=== PATIENT | female | born 1980 | race Caucasian/White ===

== ENCOUNTER 2020-12-16 21:01 | Emergency (ER) | payer OTHER ==
[~2020-12-16] VITALS: Ht 165.1 cm; Wt 63.0 kg
--- NOTE | 2020-12-16 22:21 | PHYS DOC ---
Past History Past Medical History: No Pertinent History Additional Past Surgical Histo: HIP SURGERY Alcohol Use: None General Adult EDM: Chief Complaint: POST-OP PROBLEM HPI: HPI: ".. I had surgery on this Lt hip on . at [facility].. Dr Garland.. I had a labium repair... But have noticed lately I have discoloration in my left lower leg after standing for very long. I was concerned he may have a blood clot..." Patient is a 40 year old female who presents with above hx and post op edema to Lt leg and discoloration upon standing. Patient's suture sites appear to be stable, no inflammation, and no infection. Does have what appears to be vascular congestion or discoloration of lower leg upon standing. No history of previous DVTs. No history of coagulopathy. No family history of coagulopathy. Patient left hip labral repairs on December 05. Has been doing well since surgery and ambulating with crutches. Patient has been following her surgeon's instructions. Patient became concerned when she noticed lower leg edema and discoloration. Patient's discoloration of the lower leg disappears upon regaining supine or recumbent positioning. No cording appreciated in posterior leg. On the left. Patient states she has been normally healthy in the past. No recent travel. No specific ill contacts. No history immunosuppression. Review of Systems: Review of Systems: Constitutional: Denies fever or chills Eyes: Denies change in visual acuity HENT: Denies nasal congestion or sore throat Respiratory: Denies cough or shortness of breath Cardiovascular: Complains of left lower leg edema GI: Denies abdominal pain, nausea, vomiting, bloody stools or diarrhea : Denies dysuria Musculoskeletal: Complains of left lower leg edema and discomfort Integument: Denies rash Neurologic: Denies headache, focal weakness or sensory changes Endocrine: Denies polyuria or polydipsia Lymphatic: Denies swollen glands Psychiatric: Denies depression or anxiety Family History: Family History: Noncontributory to presentation Current Medications: Current Meds: See nursing for home meds Allergies: Allergies: Allergies Coded Allergies Type Severity Reaction Last Updated Verified No Known Drug Allergies 12/16/20 No Physical Exam: PE: Constitutional: Well developed, well nourished, no acute distress, non-toxic appearance. [] HENT: Normocephalic, atraumatic, bilateral external ears normal, oropharynx moist, no oral exudates, nose normal. [] Eyes: PERRLA, EOMI, conjunctiva normal, no discharge. [] Neck: Normal range of motion, no tenderness, supple, no stridor. [] Cardiovascular:Heart rate regular rhythm, no murmur []. Monitor shows normal sinus rhythm. Lungs & Thorax: Bilateral breath sounds equal apex on auscultation [] Abdomen: Bowel sounds normal, soft, no tenderness, no masses, no pulsatile masses. [] Skin: Warm, dry, no erythema, no rash. [] Back: No tenderness, no CVA tenderness. [] Extremities: Left lower leg tenderness, no cyanosis, no clubbing, ROM intact, mild left lower leg edema. [] No cording appreciated. Surgery suture sites are stable and noninflamed. Dorsal pedis and posterior pedis are equal in both legs. Neurologic: Alert and oriented X 3, limited motor function because of the tenderness in the left lower leg at surgery site,, mild sensory loss in left lower leg,-was told this would be expected for surgery., no focal deficits noted. [] Psychologic: Affect anxious, judgement normal, mood normal. [] Current Patient Data: Vital Signs: Vital Signs Date Time Temp Pulse Resp B/P (MAP) Pulse Ox O2 Delivery O2 Flow Rate FiO2 12/16/20 21:57 98.2 69 16 119/82 (94) 98 Room Air EKG: EKG: [] Radiology/Procedures: Radiology/Procedures: [address] [id number] IMAGING REPORT Signed PATIENT: XANDER MOSLEY NACCOUNT: [id number] : 1980 LOCATION: ER AGE: 40 SEX: F EXAM STATUS: REG ER ORD. PHYSICIAN: ALICE HUTCHINS MD REASON: discolored and edema Lt. leg post surgery on 12/05 Lt hip PROCEDURE: DUPLEX LOWER EXT ARTERIAL LEFT Left Lower Extremity Venous Doppler Ultrasound History: Reason: discolored and edema Lt. leg post surgery on 12/05 Lt hip / Spl. Instructions: / History: Comparison: None Procedure: Color flow, duplex, spectral analysis and 2D images are obtained with and without compression in the area of the common femoral vein, superficial femoral vein - femoral vein junction, main femoral vein (superficial femoral vein) and popliteal vein. Veins of the proximal calf are also imaged. Findings: There is normal duplex flow, color flow and compressibility of all visualized vein segments. No evidence of deep venous thrombus is present. Impression: No evidence of DVT. End impression Left lower extremity arterial duplex Doppler examination with spectral analysis Sonographic examination left lower extremities was performed and multiple static images were obtained. In addition color Doppler was applied as well as arterial waveform spectral analysis. There is triphasic waveform morphology throughout. There is no abnormally high velocities. There is no plaque seen. IMPRESSION: Negative examination. Electronically signed by: Juan Gordillo III, MD (12/17/2020 12:33 AM) [facility] DICTATED AND SIGNED BY: JUAN GORDILLO III, MD DATE: 12/17/2031 CC: ALICE HUTCHINS MD; BYRON WEI ~MTH0 0 [][place] [address] IMAGING REPORT Signed PATIENT: XANDER MOSLEY NACCOUNT: [id number] : 1980 LOCATION: ER AGE: 40 SEX: F EXAM STATUS: REG ER ORD. PHYSICIAN: ALICE HUTCHINS MD REASON: discolored and edema Lt. leg post surgery on 12/05 hip PROCEDURE: VENOUS LOWER EXTREMITY LEFT Left Lower Extremity Venous Doppler Ultrasound History: Reason: discolored and edema Lt. leg post surgery on 12/05 Lt hip / Spl. Instructions: / History: Comparison: None Procedure: Color flow, duplex, spectral analysis and 2D images are obtained with and without compression in the area of the common femoral vein, superficial femoral vein - femoral vein junction, main femoral vein (superficial femoral vein) and popliteal vein. Veins of the proximal calf are also imaged. Findings: There is normal duplex flow, color flow and compressibility of all visualized vein segments. No evidence of deep venous thrombus is present. Impression: No evidence of DVT. End impression Left lower extremity arterial duplex Doppler examination with spectral analysis Sonographic examination left lower extremities was performed and multiple static images were obtained. In addition color Doppler was applied as well as arterial waveform spectral analysis. There is triphasic waveform morphology throughout. There is no abnormally high velocities. There is no plaque seen. IMPRESSION: Negative examination. Electronically signed by: Juan Gordillo III, MD (12/17/2020 12:33 AM) [facility] DICTATED AND SIGNED BY: JUAN GORDILLO III, MD DATE: 12/17/2031 CC: ALICE HUTCHINS MD; BYRON WEI ~MTH0 0 Heart Score: C/O Chest Pain: N/A HEART Score for Chest Pain: HEART Score for Chest Pain Response (Comments) Value ECG Normal 0 Age < 45 0 Risk Factors No Risk Factors 0 Troponin < Normal Limit 0 Total 0 Risk Factors: Risk Factors: DM, Current or recent (<one month) smoker, HTN, HLP, family history of CAD, obesity. Risk Scores: Score 0 - 3: 2.5% MACE over next 6 weeks - Discharge Home Score 4 - 6: 20.3% MACE over next 6 weeks - Admit for Clinical Observation Score 7 - 10: 72.7% MACE over next 6 weeks - Early Invasive Strategies Course & Med Decision Making: Course & Med Decision Making Pertinent Labs and Imaging studies reviewed. (See chart for details) Patient called her surgeon morning. Patient reviewed the ED work-up with surgeon. Patient review ED work-up with primary care. Patient to consider taking Eliquis 10 mg twice a day. But clear this with her surgeon in the morning. . If she starts Eliquis to hold the aspirin. Patient continue to monitor for lower leg edema and for cording. Consider repeat ultrasound after 10 days. Consider taking Eliquis 10 mg twice a day for the next 10 days. Suspect the elevated D-dimer is related to the surgery however would consider repeat ultrasound left lower leg in 10 days. . Also consider CT of chest if continued elevation D-dimer in 10 days. Patient return if any concerns. Impression; 1. Status post left hip labrum repair on 12/05-[facility]. 2.. Left lower leg vascular congestion upon standing- Suspect sequela of surgery-May be due to neurovascular changes. (No arterial or venous cause found on ultrasound) 3. Elevated D-dimer 1.73- 4. Mild Anemia Hgb 11.0 [] Dragon Disclaimer: Dragon Disclaimer: This electronic medical record was generated, in whole or in part, using a voice recognition dictation system. Departure Departure: Referrals: BYRON WEI (PCP) Scripts Apixaban (ELIQUIS) 5 Mg Tablet 10 MG PO BID for vascular abd. for 7 Days, #28 TAB Prov: ALICE HUTCHINS MD 12/17/20 Reyna Disclaimer This chart was dictated in whole or in part using Voice Recognition software in a busy, high-work load, and often noisy Emergency Department environment. It may contain unintended and wholly unrecognized errors or omissions. Dragon Disclaimer This chart was dictated in whole or in part using Voice Recognition software in a busy, high-work load, and often noisy Emergency Department environment. It may contain unintended and wholly unrecognized errors or omissions. ALICE HUTCHINS MD December 16, 2020 22:21
[2020-12-16 23:57] LABS: BASO # 0.1 x10^3/uL (0.0-0.2); BASO % 2 % (0-3); EOS # 0.2 x10^3/uL (0.0-0.7); EOS % 3 % (0-3); HEMATOCRIT 32.8 % (36.0-47.0); LYMPH # 1.7 x10^3/uL (1.0-4.8); LYMPH % 36 % (24-48); MEAN CORPUSCULAR HEMOGLOBIN 30 pg (25-35); MEAN CORPUSCULAR HGB CONC 34 g/dL (31-37); MEAN CORPUSCULAR VOLUME 88 fL (79-100); MONO # 0.4 x10^3/uL (0.0-1.1); MONO % 9 % (0-9); NEUT # 2.4 x10^3uL (1.8-7.7); NEUT % 49 % (31-73); PLATELET COUNT 334 x10^3/uL (140-400); RED BLOOD COUNT 3.71 x10^6/uL (3.50-5.40); RED CELL DISTRIBUTION WIDTH 12.9 % (11.5-14.5); WHITE BLOOD COUNT 4.8 x10^3/uL (4.0-11.0)
[2020-12-17 00:06] LABS: CALCIUM 8.6 mg/dL (8.5-10.1); CREATININE 0.7 mg/dL (0.6-1.0); GFR 93.2; POTASSIUM 4.1 mmol/L (3.5-5.1)
[2020-12-17 00:13] LABS: ALBUMIN 3.5 g/dL (3.4-5.0); DIRECT BILIRUBIN 0.1 mg/dL (0.0-0.2); TOTAL BILIRUBIN 0.4 mg/dL (0.2-1.0)
--- NOTE | 2020-12-17 00:36 | RAD ---
Left Lower Extremity Venous Doppler Ultrasound History: Reason: discolored and edema Lt. leg post surgery on 12/05 Lt hip / Spl. Instructions: / Hi story: Comparison: None Procedure: Color flow, duplex, spectral analysis and 2D images are obtained with and without compress ion in the area of the common femoral vein, superficial femoral vein - femoral vein junction, main fe moral vein (superficial femoral vein) and popliteal vein. Veins of the proximal calf are also imaged. Findings: There is normal duplex flow, color flow and compressibility of all visualized vein segments. No evide nce of deep venous thrombus is present. Impression: No evidence of DVT. End impression Left lower extremity arterial duplex Doppler examination with spectral analysis Sonographic examination left lower extremities was performed and multiple static images were obtained . In addition color Doppler was applied as well as arterial waveform spectral analysis. There is triphasic waveform morphology throughout. There is no abnormally high velocities. There is n o plaque seen. IMPRESSION: Negative examination. Electronically signed by: Oscar Mosley III, MD (12/17/2020 12:33 AM) [facility]
[2020-12-17] MEDS ORDERED: APIXABAN 5 MG TABLET. PO STA (01:17)
[2020-12-17] MEDS ORDERED: APIX5TAB3 PO (01:23)
[2020-12-17 01:35] VITALS: BP 106/71
== END 2020-12-17 01:40 | disposition home or self-care (01) ==
LOC: ER 21:01
DX: I97.89 Other postprocedural complications and disorders of the circulatory system, not elsewhere classified (principal); R60.0 Localized edema; R79.1 Abnormal coagulation profile; D64.9 Anemia, unspecified
CPT/HCPCS: 36415; 80048; 80076; 84484; 85025; 85379; 85610; 85730; 93926; 93971; 99285